=== PATIENT | female | born 1995 | race Caucasian/White ===

== ENCOUNTER 2021-03-12 23:11 | Emergency (ER) | payer OTHER ==
[2021-03-12] MEDS ORDERED: Sulfamethoxazole/Trimethoprim 800-160 MG Tab PO ONE (23:12)
[2021-03-12] MEDS ORDERED: Acetaminophen/HYDROcodone 325-5 MG Tab PO STA (23:43)
[2021-03-12] MEDS ORDERED: Ondansetron 4 MG Tab.DIS PO STA (23:43)
[2021-03-12] MEDS ORDERED: Ketorolac 30 MG/ML SDV IM STA (23:43)
[2021-03-12] MEDS ORDERED: Cyclobenzaprine 10 MG Tab PO STA (23:48)
[2021-03-13] MEDS ORDERED: Ondansetron 4 MG Tab.DIS PO ONE (00:29)
--- NOTE | 2021-03-13 01:33 | EDM.PDOC ---
ED HPI GENERAL MEDICAL PROBLEM - General Chief Complaint: Back Pain or Injury Stated Complaint: BACK PAIN Time Seen by Provider: 03/12/21 23:25 Source of Information: Reports: Patient History Limitations: Reports: No Limitations - History of Present Illness INITIAL COMMENTS - FREE TEXT/NARRATIVE: Patient presented to the ED because of low back pain and dysuria. The pain is sharp over the lumbar area,7/10, worse with movement. There is nausea but no vomiting, no fever or chills noted. She has some spotting which she attributed to her IUD. Left Lower Back Pain Score (Numeric/FACES): 10 - Related Data Allergies Allergy/AdvReac Type Severity Reaction Status Date / Time menthol Allergy Hives Verified 03/12/21 23:38 [From [facility] Hot Pain Relieving] Home Meds: Home Meds Cyclobenzaprine [Flexeril] 10 mg PO TID PRN #30 tab 03/13/21 [Rx] Ibuprofen 800 mg PO TID PRN #30 tablet 03/13/21 [Rx] Past Medical History Cardiovascular History: Reports: None Respiratory History: Reports: None Gastrointestinal History: Reports: None Genitourinary History: Reports: UTI, Recurrent CAN MARKER History: Reports: Other (See Below) Other CAN MARKER History: IUD placed 4.5 yrs ago Musculoskeletal History: Reports: None - Past Surgical History HEENT Surgical History: Reports: Tonsillectomy Cardiovascular Surgical History: Reports: None Social & Family History - Family History Family Medical History: No Pertinent Family History - Tobacco Use Years of Tobacco use: 3 - Caffeine Use Caffeine Use: Reports: Coffee - Recreational Drug Use Recreational Drug Use: No ED ROS GENERAL - Review of Systems Review Of Systems: See Below Constitutional: Reports: No Symptoms HEENT: Reports: No Symptoms Respiratory: Reports: No Symptoms Cardiovascular: Reports: No Symptoms Endocrine: Reports: No Symptoms GI/Abdominal: Reports: No Symptoms : Reports: Dysuria Musculoskeletal: Reports: Back Pain Skin: Reports: No Symptoms Neurological: Reports: No Symptoms Psychiatric: Reports: No Symptoms ED EXAM,LOWER BACK PAIN/INJURY - Physical Exam Exam: See Below Exam Limited By: No Limitations General Appearance: Alert, No Apparent Distress Eye Exam: Bilateral Eye: PERRL Ears: Normal External Exam, Normal Canal Nose: Normal Inspection, Normal Mucosa Throat/Mouth: Normal Inspection, Normal Lips Head: Atraumatic, Normocephalic Neck: Normal Inspection, Supple, Non-Tender, Full Range of Motion Respiratory/Chest: No Respiratory Distress, Lungs Clear, Normal Breath Sounds, No Accessory Muscle Use, Chest Non-Tender Cardiovascular: Normal Peripheral Pulses, Regular Rate, Rhythm, No Edema, No Gallop GI/Abdominal: Normal Bowel Sounds, Soft, Non-Tender Back Exam: Muscle Spasm, Vertebral Tenderness Extremities: Normal Inspection Neurological: Alert, Normal Mood/Affect, Normal Dorsiflexion, Normal Plantar Flexion Course - Vital Signs Text/Narrative:: [place] 5 mg 2 PO x1 Toradol 60 mg IM x1 Flexeril 10 mg PO x1 Zofran ODT 4 mg PO x 2 doses Last Recorded V/S: Last Vital Signs Temp 36.2 C 03/13/21 00:11 Pulse 115 H 03/13/21 00:56 Resp 16 03/13/21 00:56 BP 142/107 H 03/13/21 00:56 Pulse Ox 96 03/13/21 00:56 - Orders/Labs/Meds Labs: Laboratory Tests 03/13/21 Range/Units 01:30 Urine Color Yellow (YELLOW) Urine Appearance Slightly cloudy (CLEAR) Urine pH 5.0 (5.0-6.5) Ur Specific [place] 1.025 (1.010-1.025) Urine Protein Negative (NEGATIVE) mg/dL Urine Glucose (UA) Normal (NORMAL) mg/dL Urine Ketones 15 H (NEGATIVE) mg/dL Urine Occult Blood Moderate H (NEGATIVE) Urine Nitrite Negative (NEGATIVE) Urine Bilirubin Negative (NEGATIVE) Urine Urobilinogen Normal (NEGATIVE) mg/dL Ur Leukocyte Esterase Negative (NEGATIVE) Urine RBC 10-20 H (0-5) Urine WBC 0-5 (0-5) Ur Squamous Epith Cells Moderate H (NS,R,O) Urine Bacteria Few H (NS) Urine Mucus Few H (NS) Meds: Medications Discontinued Medications Generic Name Dose Route Start Last Admin Trade Name Freq PRN Reason Stop Dose Admin Hydrocodone Bitart/Acetaminophen 2 tab 03/12/21 23:43 03/12/21 23:52 Acetaminophen/Hydrocodone 325-5 Mg Tab PO 03/12/21 23:44 2 tab NOW STA Administration Cyclobenzaprine HCl 10 mg 03/12/21 23:48 03/12/21 23:52 Cyclobenzaprine 10 Mg Tab PO 03/12/21 23:49 10 mg NOW STA Administration Ketorolac Tromethamine 60 mg 03/12/21 23:43 03/12/21 23:52 Ketorolac 30 Mg/Ml Sdv IM 03/12/21 23:44 60 mg NOW STA Administration Ondansetron HCl 4 mg 03/12/21 23:43 03/12/21 23:52 Ondansetron 4 Mg Tab.Dis PO 03/12/21 23:44 4 mg NOW STA Administration Ondansetron HCl 4 mg 03/13/21 00:29 03/13/21 00:32 Ondansetron 4 Mg Tab.Dis PO 03/13/21 00:30 4 mg ONETIME ONE Administration Departure - Departure Time of Disposition: 01:45 Disposition: Home, Self-Care 01 Condition: Good Clinical Impression: UTI (urinary tract infection) - Discharge Information Prescriptions: Cyclobenzaprine [Flexeril] 10 mg PO TID PRN #30 tab PRN Reason: Spasms Ibuprofen 800 mg PO TID PRN #30 tablet PRN Reason: Pain Instructions: Urinary Tract Infection, Adult, [id number], Chronic Back Pain, [id number] Referrals: Sherin Healy NP [Primary Care Provider] - Forms: ED Department Discharge Additional Instructions: Please read discharge instructions on chronic low back pain and UTI Drink at least 2 liters of water daily Bactrim DS twice daily for 5 days Ibuprofen 800 mg with tylenol 1000 mg, and flexeril 10 every 8 hours as needed for pain/spasm Follow up with your clinic if symptoms persist or worsens Sepsis Event Note (ED) - Evaluation Sepsis Screening Result: No Definite Risk - Focused Exam Vital Signs: Vital Signs Temp Pulse Resp BP Pulse Ox 03/13/21 00:56 115 H 16 142/107 H 96 03/13/21 00:41 112 H 16 156/110 H 96 03/13/21 00:26 113 H 16 166/116 H 95 03/13/21 00:11 36.2 C 114 H 20 163/104 H 95
== END 2021-03-13 01:46 | disposition home or self-care (01) ==
LOC: FB.ED 23:11
DX: N39.0 Urinary tract infection, site not specified (principal); Z87.891 Personal history of nicotine dependence; Z88.8 Allergy status to other drugs, medicaments and biological substances
CPT/HCPCS: 81001; 96372; 99283; A9270; J1885

== ENCOUNTER 2021-11-12 13:30 | Emergency (ER) | payer BC ==
[2021-11-12] MEDS ORDERED: Cyclobenzaprine 10 MG Tab PO ONE (13:50)
[2021-11-12] MEDS ORDERED: Ketorolac 30 MG/ML SDV IM STA (13:50)
[2021-11-12] MEDS ORDERED: Acetaminophen/HYDROcodone 325-5 MG Tab PO STA (13:50)
[2021-11-12] MEDS ORDERED: Ondansetron 4 MG Tab.DIS PO STA (13:50)
== END 2021-11-12 14:45 | disposition home or self-care (01) ==
LOC: FB.ED 13:30
DX: N39.0 Urinary tract infection, site not specified (principal); M79.7 Fibromyalgia; Z88.8 Allergy status to other drugs, medicaments and biological substances
CPT/HCPCS: 96372; 99282; A9270; J1885; Q0162

== ENCOUNTER 2024-06-05 20:43 | Emergency (ER) | payer OTHER ==
[2024-06-05 21:20] LABS: HEMATOCRIT 35.3 % (34.2-48.2); HEMOGLOBIN 11.3 g/dL (11.4-15.5); MEAN CORPUSCULAR HEMOGLOBIN 24.8 pg (23.9-33.9); MEAN CORPUSCULAR HGB CONC 31.9 g/dL (31.9-34.8); MEAN CORPUSCULAR VOLUME 77.7 fL (76.7-100.5); MEAN PLATELET VOLUME 6.5 fL (7.1-12.4); PLATELET COUNT,PLT 841 x10(3)uL (151-488); RED BLOOD CELL COUNT 4.54 x10(6)uL (3.60-5.20); RED CELL DISTRIBUTION WIDTH 16.9 % (12.3-16.5); WHITE BLOOD CELL COUNT,WBC 17.1 x10-3/uL (3.0-10.3)
[2024-06-05 21:25] LABS: BLOOD UREA NITROGEN,BUN 27 mg/dL (7-18); CALCIUM 9.2 mg/dL (8.6-10.2); CARBON DIOXIDE,CO2 28 mmol/L (21-32); CHLORIDE,CL 100 mmol/L (100-110); CREATININE 0.9 mg/dL (0.55-1.02); ESTIMATED GFR 90 mL/min (>60); GLUCOSE RANDOM 97 mg/dL (80-116); SODIUM,NA 139 mmol/L (135-145)
[2024-06-05 21:37] LABS: LYMPHOCYTES PERCENT MAN 14 % (13-37); MONOCYTES PERCENT MAN 6 % (4-12); SEG NEUTROPHILS PERCENT MAN 80 % (46-82)
[2024-06-05 21:38] LABS: BILIRUBIN,URINE NEGATIVE (NEGATIVE); GLUCOSE,URINE NORMAL (NORMAL); KETONES,URINE NEGATIVE (NEGATIVE); LEUKOCYTE ESTERASE,URINE NEGATIVE (NEGATIVE); NITRITE,URINE NEGATIVE (NEGATIVE); OCCULT BLOOD,URINE MODERATE (NEGATIVE); PROTEIN,URINE NEGATIVE (NEGATIVE); UROBILINOGEN,URINE NORMAL (NEGATIVE)
[2024-06-05 21:39] LABS: APPEARANCE,URINE CLEAR (CLEAR); BACTERIA,URINE FEW (NS); COLOR,URINE YELLOW (YELLOW); SQUAMOUS EPITHELIAL CELLS,UR RARE (NS,R,O); WBC,URINE 0-5 (0-5)
== END 2024-06-05 23:01 | disposition home or self-care (01) ==
LOC: FB.ED 20:43
DX: R10.9 Unspecified abdominal pain (principal); Z79.899 Other long term (current) drug therapy; Z91.09 Other allergy status, other than to drugs and biological substances; Z91.018 Allergy to other foods
CPT/HCPCS: 36415; 74176; 80048; 81001; 85025; 99284